=== PATIENT | male | born 1930 | race Caucasian/White ===

== ENCOUNTER 2018-10-02 18:03 | Inpatient (IN) | payer OTHER, BC ==
[~2018-10-02] VITALS: Ht 170.2 cm; Wt 75.8 kg
--- NOTE | 2018-10-02 18:05 | NUR ---
PT BIB [facility] FOR [facility]OC. FAMILY STATED PT WAS NOT ACTING NORMAL TO THEM FOR APPROX 1 HR RESEARCH PHYSICIAN TO ED. UPON ARRIVAL PT AAOX3 FOLLOWS ALL COMMANDS. SLIGHLY CONFUSED TO SITUATION. PT DENIES ANY CP,SOB AND OR ANY OR GI SYMPTOMS. PT GOWNED PLACED ON FULL CM PACEMAKER TO L CHEST NOTED. IV TO L HAND 20G INSERTED BY MEDICS RESEARCH PHYSICIAN TO ED PATENT FLUSHED WITH 10CC NS WITH NO PROBLEM. SKIN WARM DRY INTACT. R ANKLE SWELLING DEFORMITY X 20 YRS NORMAL PER SON. R BLE PITTING EDEMA PT AMBULATORY AT HOME WITH USE OF CANE OR WALKER. COOLING MEASURES INITIATED DUE TO 102.0 ORAL TEMP. ALL EXTRA LAYERS OF CLOTHING REMOVED. PT IN NO DISTRESS AWAITING MD NIELSEN AND ORDERS WILL MONITOR. SON AT BEDSIDE. SIDE RAILS UP X 2 CALL LIGHT IN REACH.
--- NOTE | 2018-10-02 18:12 | NUR ---
DR INMAN AT BEDSIDE FOR MSE
--- NOTE | 2018-10-02 18:23 | NUR ---
STRAIGHT CATH DONE TOLERATED WELL BY PT URINE COLLECTED AND SENT TO LAB
--- NOTE | 2018-10-02 18:23 | NUR ---
LAB AT BEDSIDE FOR BLOOD DRAW
[2018-10-02 18:37] LABS: microscopic required? NO
--- NOTE | 2018-10-02 18:43 | NUR ---
IVF FLUID INFUSION IN PROGRESS. IV SITE PATENT.
[2018-10-02 18:45] LABS: BASOPHIL % 0.1 % (0-2); PLATELET COUNT 147 x10^3mcL (130-400); RED CELL DISTRIBUTION WIDTH 14.2 % (11.5-14.5)
[2018-10-02 18:52] LABS: UA SPECIFIC GRAVITY <=1.005 (1.005-1.035); urine erythrocyte NEGATIVE (NEGATIVE)
[2018-10-02 19:01] LABS: AMPHETAMINE QUAL UR NONE DETECTED (See below)
--- NOTE | 2018-10-02 19:04 | NUR ---
CT AT THIS TIME.
--- NOTE | 2018-10-02 19:06 | NUR ---
REPORT GIVEN TO SOCRATES GARIBAY RESUMING CARE OF PT AT THIS TIME
--- NOTE | 2018-10-02 19:08 | NUR ---
RECEIVED REPORT FROM JACQUELYN GARIBAY. I WILL RESUME FURTHER CARE OF THIS PATIENT.
[2018-10-02 19:16] LABS: ALKALINE PHOSPHATASE 84 U/L (46-116); ALT/SGPT 19 U/L (16-63); AST/SGOT 33 U/L (15-37); CALCIUM 8.8 mg/dL (8.5-10.1); CARBON DIOXIDE 29.7 mmol/L (21-32); CHLORIDE SERUM 103 mmol/L (98-107); CHOLESTEROL 181 mg/dL (<200); CREATININE SERUM 2.1 mg/dL (0.7-1.3); GLUCOSE SERUM 126 mg/dL (74-106); LIPASE 156 IU/L (73-393); MAGNESIUM 2.8 mg/dL (1.8-2.4); POTASSIUM SERUM 4.5 mmol/L (3.5-5.1); SODIUM SERUM 143 mmol/L (136-145); T4(THYROXINE) 9.5 ug/dL (4.7-13.3); TOTAL PROTEIN, SERUM 6.2 g/dL (6.4-8.2)
[2018-10-02 19:19] LABS: ALBUMIN 3.3 g/dL (3.4-5.0); HDL CHOLESTEROL 65 mg/dL (40-60)
--- NOTE | 2018-10-02 19:25 | NUR ---
PT IS LAYING IN POSTION OF COMFORT IN SEMI ORTIZ'S. PT IS AAOX4, NO DISTRESS NOTED, RESP E/U, SKIN IS PINAK WARM AND DRY, SWELLING NOTED TO RIGHT FOOT. PT ON FULL CM, VSS. SON AT THE BEDSIDE. PT REQUESTED BLANKET, GAVE PT A BLANKET. BED IN LOWEST POSITION, SIDERAIL X2 UP FOR SAFETY. CALL CHRISTIANSEN WITHIN REACH, WILL CONT TO MONITOR.
--- NOTE | 2018-10-02 20:42 | NUR ---
BP-89/47, MADE AWARE, ORDERED 1 LITER NS 0.9%. PT PLACED IN [place] POSITION. PT DENIES ANY DIZZINESS OR PAIN AT THIS TIME. PT IS AAOX4, NO DISTRESS NOTED, RESP E/U, SKIN IS INK WARM AND DRY. PT ON FULL CM, NSR, WILL CONT TO MONITOR. SON AT THE BEDSIDE.
--- NOTE | 2018-10-02 21:30 | NUR ---
PT ASKED FOPR WATER, GAVE PATIENT WATER TO DRINK. PT IN POSTIION FO COMFORT,. BNO DISTRESS NOTED, RESP E/U. PT ON FULL CM, NSR, WILL CONT TO MONITOR. SON A THE BEDSIDE
[2018-10-02 22:19] LABS: PHOSPHOROUS 3.3 mg/dL (2.5-4.9)
[2018-10-02 22:20] LABS: CHOLESTEROL/HDL RATIO 2.8
[2018-10-02 22:30] LABS: T3 TOTAL 0.77 ng/mL
[2018-10-02] MEDS ORDERED: TART CHERRY E1000 MG PO (22:30)
[2018-10-02] MEDS ORDERED: FINASTERIDE5 M1 PO (22:30)
[2018-10-02] MEDS ORDERED: FUROSEMIDE40 MG PO (22:30)
[2018-10-02] MEDS ORDERED: IBUPROFEN400 MG PO (22:31)
[2018-10-02] MEDS ORDERED: LIPITOR40 MG PO (22:31)
[2018-10-02] MEDS ORDERED: ALLOPURINOL100 MG PO (22:31)
[2018-10-02] MEDS ORDERED: ASPIR 8181 MG PO (22:31)
[2018-10-02] MEDS ORDERED: VITAMIN C500 M6 PO (22:31)
[2018-10-02] MEDS ORDERED: ACIDOPHILUS1 EAC2 PO (22:32)
[2018-10-02] MEDS ORDERED: LEVOTHYROXIN0.025 M2 PO (22:33)
[2018-10-02 22:39] LABS: FREE T4 1.24 ng/dL (0.76-1.46); FREE THYROXINE INDEX 3.2 ug/dL (1.4-4.5)
--- NOTE | 2018-10-02 22:44 | NUR ---
GAVE REPORT TO SJ GARIBAY ON TELE, WHO WILL RESUME FURTHER CARE OF THIS PATIENT.
--- NOTE | 2018-10-02 23:04 | NUR ---
RECEIVED PT FROM ED VIA [employer], CAME IN DUE TO ALOC AND RIGHT THIGH REDNESS. AAOX4, [place]. ABLE TO FOLLOW SIMPLE COMMANDS. NO SOB NOTED, LUNG SOUNDS CTA. DENIES CHEST PAIN/PRESSURE, W/ LEFT CHEST PACEMAKER, 100% PACED ON THE MONITOR. DENIES ABDOMINAL DISCOMFORT. STATED THAT HE HAD HARD STOOLS ON 10/01/18. ABDOMEN IS SOFT. BOWEL SOUNDS ACTIVE. VOIDS. IV SITE PATENT AND INTACT. W/ BUE ECCHYMOSIS, LLE CHRONIC RASH W/ RAISED BUMPES AND RIGHT ANKLE SWELLING FOR ABOUT 10 YEARS, W/ BLE ERYTHEMA. RLE > LLE. PULSES ARE PALPABLE. SIDE RAILS UPX2. CALL LIGHT ON REACH. HOB ELEVATED AT 30 DEG. PT'S SON AT BEDSIDE. PRIMARY NURSE SJ AT BEDSIDE FOR CONTINUITY OF CARE
[2018-10-02 23:23] VITALS: BP 111/51
[2018-10-02 23:33] VITALS: Ht 170.2 cm; Wt 75.8 kg
--- NOTE | 2018-10-03 | NUR ---
PT IS AAOX4. DENIES ANY PAIN/DISTRESS. PT BREATHING EVEN AND UNLABORED NO SOB NOTED. IV PATENT. CALL BUTTON WITHIN REACH. SAFETY PRECAUTIONS IN PLACE. WILL CONTINUE TO MONITOR.
--- NOTE | 2018-10-03 01:15 | NUR ---
PT REQUESTING FOR SLEEPING MEDICATION. MEDICATED PER EMAR. CALL BUTTON WITHIN REACH. SAFETY PRECAUTIONS IN PLACE. WILL MONITOR.
[2018-10-03 04:29] VITALS: BP 116/60
--- NOTE | 2018-10-03 05:10 | NUR ---
PT SLEPT MOST OF THE NIGHT WITH NO SIGNS OF DISTRESS NOTED. IV PATENT AND INFUSING WELL. PT DENIES ANY PAIN AT THIS TIME. MEDICATED PER EMAR. CALL BUTTON WITHIN REACH. SAFETY PRECAUTIONS IN PLACE. CALL BUTTON WITHIN REACH. SAFETY PRECAUTIONS IN PLACE. WILL CONTINUE TO MONITOR AND ENDORSE CARE TO DAY SHIFT RN.
[2018-10-03 06:10] LABS: RED CELL DISTRIBUTION WIDTH 14.1 % (11.5-14.5)
[2018-10-03 06:36] LABS: CALCIUM 8.1 mg/dL (8.5-10.1); CHLORIDE SERUM 109 mmol/L (98-107); CREATININE SERUM 1.7 mg/dL (0.7-1.3); GLUCOSE SERUM 99 mg/dL (74-106); MAGNESIUM 2.6 mg/dL (1.8-2.4); PHOSPHOROUS 3.7 mg/dL (2.5-4.9); POTASSIUM SERUM 3.7 mmol/L (3.5-5.1); SODIUM SERUM 143 mmol/L (136-145)
[2018-10-03 06:43] LABS: BASOPHIL % 0 % (0-2); PLATELET COUNT 112 x10^3mcL (130-400)
--- NOTE | 2018-10-03 07:10 | NUR ---
RECEIVED BEDSIDE REPORT FROM GAS PROCESSING PLANT OPERATOR NURSE. PATIENT RESTING COMFORTABLY IN BED. NO APPARENT DISTRESS OR DISCOMFORT NOTED. BILATERAL HEARING AIDS NOTED AT BEDSIDE. BREATHING EVEN AND UNLABORED. NO RESPIRATORY DISTRESS NOTED. PATIENT DENIES SHORTNESS OF BREATH. PATIENT DENIES CHEST PAIN/PRESSURE AT THIS TIME. IV PATENT AND INTACT. ALL QUESTIONS AND CONCERNS ADDRESSED. ALL NEEDS ATTENDED TO. WILL CONTINUE TO MONITOR
--- NOTE | 2018-10-03 07:25 | NUR ---
PT AWAKE, DENIES ANY PAIN. NO SIGNS OF DISTRESS NOTED. ENDORSED CARE TO DAY SHIFT RN, ALL QUESTIONS ADDRESSED.
[2018-10-03 09:25] VITALS: BP 108/52
--- NOTE | 2018-10-03 09:54 | NUR ---
ALL MORNING MEDICATIONS ADMINISTERED. PATIENT TOLERATED MEDICATIONS WELL. NO ADVERSE EFFECT NOTED. ALL NEEDS ATTENDED TO. WILL CONTINUE TO MONITOR
--- NOTE | 2018-10-03 12:33 | NUR ---
PATIENT SITTING UP ON SIDE OF BED EATING LUNCH AT THIS TIME. PATIENT TOLERATING DIET WELL. NO APPARENT DISTRESS OR DISCOMFORT NOTED. ALL NEEDS ATTENDED TO. WILL CONTINUE TO MONITOR
[2018-10-03 12:37] VITALS: BP 103/70
[2018-10-03 14:34] VITALS: BP 103/70
--- NOTE | 2018-10-03 15:10 | NUR ---
REPORTED TO DR QUICK THAT PATIENT BLOOD CULTURE GRAM POSITIVE COCCI IN CLUSTER AT THIS TIME. PER DR QUICK, PATIENT CANNOT BE DISCHARGED TODAY. EXPLAINED TO PATIENT AND PATIENTS SON THAT HE WILL NEED IV ANTIBIOTICS AND WILL NEED TO STAY THE NIGHT. BOTH VERBALIZE UNDERSTANDING. ALL QUESTIONS AND CONCERNS ADDRESSED. ALL NEEDS ATTENDED TO. WILL CONTINUE TO MONITOR
--- NOTE | 2018-10-03 16:23 | NUR ---
PATIENT IV TO LEFT HAND REMOVED WITH CATH INTACT BEFORE DISCHARGE WAS CANCELLED. NEW IV PLACED TO RIGHT FOREARM 22G AT THIS TIME. ALL NEEDS ATTENDED TO. WILL CONTINUE TO MONITOR
[2018-10-03 17:31] VITALS: BP 143/80
--- NOTE | 2018-10-03 18:43 | NUR ---
PATIENT RESTING COMFORTABLY IN BED AT THIS TIME. NO APPARENT DISTRESS OR DISCOMFORT NOTED. IV PATENT AND INTACT. ALL QUESTIONS AND CONCERNS ADDRESSED. ALL NEEDS ATTENDED TO. SAFETY PRECAUTIONS MAINTAINED. WILL ENDORSE ALL CARE TO COMPUTER SECURITY COORDINATOR NURSE
--- NOTE | 2018-10-03 19:10 | NUR ---
REPORT RECEIVED FROM DAY SHIFT RN. PATIENT WAS SEEN AND IS RESTING COMFORTABLY IN BED. DENIES PAIN. DENIES CHEST PAIN/PRESSURE. IV TO THE RFA INFUSING WELL. PATENT AND INTACT. NO REDNESS OR SWELLING NOTED. BREATHING EVEN AND UNLABORED ON ROOM AIR. NO SOB OR RESP DISTRESS NOTED. TELE #10 WITH 100% PACED. COMFORT AND SAFETY MEASURES IN PLACE. CALL LIGHT IS WITHIN REACH. BED IS LOCKED AND IN THE LOWEST POSITION. SIDE RAILS UP X2. WILL CONTINUE TO MONITOR.
[2018-10-03 20:47] VITALS: BP 119/57
--- NOTE | 2018-10-04 00:09 | NUR ---
PATIENT SPILLED URINAL ON HIMSELF AND FLOOR. HOUSE KEEPING CALLED. NEW GOWN AND SOCKS PROVIDED AND PLACED ON PATIENT. CLEANSE LLE WOUND WITH NS AND PATTED DRY WITH GAUZE. ISLAND DRESSING PLACED. NO DRAINAGE OR ODOR NOTED. DENIES PAIN AT THE SITE. NO DISTRESS OR COMPLAINTS VOICED. CALL LIGHT IS WITHIN REACH. WILL CONTINUE TO MONITOR.
[2018-10-04 05:28] VITALS: BP 115/70
--- NOTE | 2018-10-04 06:06 | NUR ---
PRN COLACE GIVEN. PATIENT STATES HE IS CONSTIPATED BYT HAD A BM YESTERDAY.
[2018-10-04 06:37] LABS: BASOPHIL % 0.3 % (0-2); RED CELL DISTRIBUTION WIDTH 14.3 % (11.5-14.5)
[2018-10-04 06:40] LABS: PLATELET COUNT 118 x10^3mcL (130-400)
[2018-10-04 06:47] LABS: CALCIUM 8.7 mg/dL (8.5-10.1); CHLORIDE SERUM 111 mmol/L (98-107); CREATININE SERUM 1.6 mg/dL (0.7-1.3); GLUCOSE SERUM 79 mg/dL (74-106); MAGNESIUM 2.4 mg/dL (1.8-2.4); PHOSPHOROUS 2.7 mg/dL (2.5-4.9); POTASSIUM SERUM 4.1 mmol/L (3.5-5.1); SODIUM SERUM 144 mmol/L (136-145)
--- NOTE | 2018-10-04 06:53 | NUR ---
RESTED IN LONG INTERVALS THROUGHOUT THE NIGHT. NO ACUTE CHANGES NOTED. BREATHING EVEN AND UNLABORED. NO DISTRESS NOTED. NO C/O THROUGHOUT THE NIGHT. SAFETY MEASURES IN PLACE. CALL LIGHT IS WITHIN REACH. WILL ENDORSE CARE TO DAY SHIFT RN
--- NOTE | 2018-10-04 07:10 | NUR ---
RECEIVED BEDSIDE REPORT FROM GENERAL MANAGER ROAD PRODUCTION NURSE AT THIS TIME. PATIENT RESTING COMFORTABLY IN BED. NO APPARENT DISTRESS OR DISCOMFORT NOTED. HEARING AIDS NOTED AT BEDSIDE. BREATHING EVEN AND UNLABORED. NO RESPIRATORY DISTRESS NOTED. NO INDICATION OF SHORTNESS OF BREATH. NO INDICATION OF CHEST PAIN/PRESSURE AT THIS TIME. IV PATENT AND INTACT. ALL QUESTIONS AND CONCERNS ADDRESSED. ALL NEEDS ATTENDED TO. WILL CONTINUE TO MONITOR
[2018-10-04 09:29] VITALS: BP 138/70
[2018-10-04 09:30] VITALS: BP 138/70
--- NOTE | 2018-10-04 10:26 | NUR ---
ALL MORNING MEDICATIONS ADMINISTERED AT THIS TIME. PATIENT TOLERATED MEDICATION WELL. NO ADVERSE EFFECTS NOTED AT THIS TIME. ALL NEEDS ATTENDED TO. WILL CONTINUE TO MONITOR
--- NOTE | 2018-10-04 12:14 | NUR ---
PATIENT STABLE TO BE DISCHARGED TO HOME. DISCHARGE INSTRUCTIONS GIVEN WELL EDUCATION. INSTRUCTED PATIENT AND SON ABOUT FOLLOW UP APPOINTMENT. PATIENT VERBALIZES UNDERSTANDING. IV REMOVED WITH CATH INTACT. ID BANDS REMOVED. TELE MONITOR REMOVED AND RETURNED TO POLICE [employer]IE[employer]ENANT. ALL BELONGINGS WITH PATIENT. PROVIDED FRONTWHEEL WALKER. ALL QUESTIONS AND CONCERNS ADDRESSED. ALL NEEDS ATTENDED TO. ESCORTED DOWN TO THE LOBBY VIA WHEELCHAIR BY PLANT ATTENDANT AT THIS TIME
== END 2018-10-04 12:14 | disposition home or self-care (01) | DRG 682 ==
LOC: ED 18:03 → DU 21:15
PROVIDERS: Emergency Medicine; ADMIT Internal Medicine
DX: N17.0 Acute kidney failure with tubular necrosis (principal); G93.41 Metabolic encephalopathy; L03.115 Cellulitis of right lower limb; E44.1 Mild protein-calorie malnutrition; R65.10 Systemic inflammatory response syndrome (SIRS) of non-infectious origin without acute organ dysfunction; E86.0 Dehydration; E83.41 Hypermagnesemia; N18.4 Chronic kidney disease, stage 4 (severe); E78.5 Hyperlipidemia, unspecified; E03.9 Hypothyroidism, unspecified; I25.10 Atherosclerotic heart disease of native coronary artery without angina pectoris; M10.9 Gout, unspecified; N40.0 Benign prostatic hyperplasia without lower urinary tract symptoms; E78.00 Pure hypercholesterolemia, unspecified; Z95.0 Presence of cardiac pacemaker; Z95.2 Presence of prosthetic heart valve; Z68.26 Body mass index [BMI] 26.0-26.9, adult; Z82.49 Family history of ischemic heart disease and other diseases of the circulatory system; Z95.1 Presence of aortocoronary bypass graft; Z87.891 Personal history of nicotine dependence; Z79.1 Long term (current) use of non-steroidal anti-inflammatories (NSAID); Z79.82 Long term (current) use of aspirin
CPT/HCPCS: 82962; 83880; 84439; 97116-GP; 97530-GP; G0378; G0480; J0690; J1956; J7030; J7040